=== PATIENT | female | born 2005 | race Caucasian/White ===

== ENCOUNTER 2023-02-04 05:49 | Emergency (ER) | payer OTHER, SELFPAY ==
[2023-02-04 05:57] VITALS: BP 101/85; PULSE 86; RESP 16; TEMP 36.7; O2SAT 100
[2023-02-04 06:38] LABS: Strep Group A RT-PCR NOT DETECTED (Negative)
--- NOTE | 2023-02-04 07:13 | ED.GENADULT ---
HPI - General Adult General Chief complaint: Unspecified Stated complaint: Sore throat with whites spots on tonsil Time Seen by Provider: 02/04/23 06:51 History of Present Illness HPI narrative: 17-year-old female presenting to the emergency department for evaluation of sore throat since Monday. Patient states she has been doing symptomatic treatment including salt water gargles. Patient states he does have a history of tonsil stones. Patient does have a hoarse voice. Related Data Allergies Allergy/AdvReac Type Severity Reaction Status Date / Time No Known Allergies Allergy Verified 02/04/23 05:52 Review of Systems Review of Systems: All systems reviewed & are unremarkable except as noted in HPI and below Exam Narrative: APPEARANCE: Well appearing, no pain, no distress, well-nourished. HEAD: normocephalic, atraumatic. EYES: PERRLA/EOMI, conjunctivae clear. NOSE: Normal no drainage EARS:TMS clear with good light reflex. THROAT: Posterior pharyngeal exudate. Mild swelling of the tonsils. No uvular deviation. No significant posterior pharynx swelling. NECK: Supple. No adenopathy, no masses. RESPIRATORY: Airway patent, respirations nonlabored. Clear to auscultation bilaterally, no rales, rhonchi, wheezing. CARDIOVASCULAR: Regular rate and rhythm without murmurs rubs or gallops. ABDOMINAL: Soft, nontender, nondistended, normal bowel sounds MUSCULOSKELETAL: Moves all extremities. Strength/ROM intact, No edema, No calf tenderness. NEURO: Alert. Cranial nerves II through XII intact. Grossly intact SKIN: Warm, dry. Normal Color Course Course Emergency Course: 17-year-old female presented to ED for sore throat. Group strep was negative. Patient does have tonsillar exudates and tonsillar swelling. Patient will be treated for tonsillitis/strep throat. Patient was updated on the results of the work-up and treatment plan and reasons for using antibiotics. Patient will be started on Augmentin in the ED and discharged home with Augmentin. Patient was advised on symptomatic treatment. Patient was also encouraged of close follow-up with her physician. All questions concerns were addressed. Vital Signs Vital signs: Vital Signs Temperature 98.1 F 02/04/23 05:57 Pulse Rate 86 02/04/23 05:57 Respiratory Rate 16 02/04/23 05:57 Blood Pressure 101/85 02/04/23 05:57 Pulse Oximetry 100 02/04/23 05:57 Oxygen Delivery Room Air 02/04/23 05:57 Temperature 98.1 F 02/04/23 05:57 Pulse Rate 86 02/04/23 05:57 Respiratory Rate 16 02/04/23 05:57 Blood Pressure 101/85 02/04/23 05:57 Pulse Oximetry 100 02/04/23 05:57 Oxygen Delivery Room Air 02/04/23 05:57 Medical Decision Making Differential Diagnosis Differential Diagnosis: Viral pharyngitis, streptococcal pharyngitis, tonsillitis, Vital Signs Vital Signs: Vital Signs Temperature 98.1 F 02/04/23 05:57 Pulse Rate 86 02/04/23 05:57 Respiratory Rate 16 02/04/23 05:57 Blood Pressure 101/85 02/04/23 05:57 Pulse Oximetry 100 02/04/23 05:57 Oxygen Delivery Room Air 02/04/23 05:57 Temperature 98.1 F 02/04/23 05:57 Pulse Rate 86 02/04/23 05:57 Respiratory Rate 16 02/04/23 05:57 Blood Pressure 101/85 02/04/23 05:57 Pulse Oximetry 100 02/04/23 05:57 Oxygen Delivery Room Air 02/04/23 05:57 Lab Data Lab results reviewed: Yes I reviewed the patient's lab results. Labs: Lab Results 02/04/23 Range/Units 06:08 Group A Strep (PCR) Not detected (Negative) Discharge Plan Discharge Clinical Impression: Acute sore throat Patient Disposition: Home, Self-Care Condition: Stable Instructions: Antibiotic Form, Pharyngitis (ED) Additional Instructions: Antibiotic as directed until completed. Tylenol and ibuprofen for sore throat. Follow a soft diet. Drink plenty fluids. Symptomatic treatment as directed have close follow-up with your primary care physician. Prescrip
== END 2023-02-04 07:20 | disposition home or self-care (01) ==
PROVIDERS: Emergency Medicine; Emergency Provider Emergency Medicine
DX: J02.9 Acute pharyngitis, unspecified (principal)
CPT/HCPCS: 87651; 99283

== ENCOUNTER 2024-01-14 07:32 | Emergency (ER) | payer OTHER, SELFPAY ==
[2024-01-14 07:39] VITALS: BP 123/80; PULSE 82; RESP 16; TEMP 36.8; O2SAT 100
--- NOTE | 2024-01-14 08:32 | ED.EYEPROB ---
HPI - Eye Problem General Chief complaint: Eye Problems Stated complaint: pink eye Time Seen by Provider: 01/14/24 07:40 History of Present Illness HPI Narrative: This is a 18-year-old female, with no significant past medical history, presents emergency department of right eye irritation and pain for past day. 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 She complains of some blurred vision but no loss of vision. She does wear contacts. Related Data Allergies Allergy/AdvReac Type Severity Reaction Status Date / Time No Known Allergies Allergy Verified 02/04/23 05:52 Review of Systems Review of Systems: CONSTITUTIONAL: Denies fever, chills, or sweats. EYES: Right eye redness, discharge and mild blurred vision ENT: Rhinorrhea and congestion (seasonal allergies) Denies sore throat, or otalgia. CARDIOVASCULAR: Denies chest pain, palpitations, or edema. RESPIRATORY: Denies cough or dyspnea. GASTROINTESTINAL: Denies abdominal pain, nausea, vomiting, or diarrhea. GENITOURINARY: LMP ongoing. Denies dysuria or hematuria. SKIN: Denies rash or itching. MUSCULOSKELETAL: Denies back pain, joint pain, or myalgia. NEUROLOGIC: Denies headache, numbness, dizziness, or weakness. PSYCHIATRIC: Denies anxiety or depression. PMFSH Past Medical History Medical History No significant past medical history Surgical History Surgical History No significant past surgical history Exam Narrative: GENERAL: Well-developed, well-nourished, and in no acute distress. HEAD: Normocephalic, atraumatic. EYES: PERRLA and EOMI. Right eye conjunctiva wall injection without foreign body. Contacts in place. ENT: Nares clear, no rhinorrhea or epistaxis. Mucous membranes moist. Oropharynx without tonsillar hypertrophy exudate or other lesions. CHEST: Clear to auscultation. No respiratory distress. No wheezes rales or rhonchi HEART: Regular rate and rhythm. No murmur heard. Normal peripheral pulses. EXTREMITIES: Normal range of motion. No edema. SKIN: Warm, dry, no rash. NEURO: Alert and oriented x3. No focal deficit. Moving all 4 limbs spontaneously PSYCH: Normal mood and affect. Course Course Emergency Course: 08:34 - Exam consistent with conjunctivitis. Will treat with ciprofloxacin for presumed bacterial conjunctivitis. I advised the patient on proper hand washing. Will discharge with recommendation for primary care follow-up. I discussed the findings and recommendations with the patient. Discussed return and emergency precautions including signs/symptoms of orbital cellulitis and vision loss. The patient voiced understanding and agreement with the plan. All questions answered to her satisfaction. Vital Signs Vital signs: Vital Signs Temperature 98.3 F 01/14/24 07:39 Pulse Rate 82 01/14/24 07:39 Respiratory Rate 16 01/14/24 07:39 Blood Pressure 123/80 01/14/24 07:39 Pulse Oximetry 100 01/14/24 07:39 Oxygen Delivery Room Air 01/14/24 07:39 Temperature 98.3 F 01/14/24 07:39 Pulse Rate 82 01/14/24 07:39 Respiratory Rate 16 01/14/24 07:39 Blood Pressure 123/80 01/14/24 07:39 Pulse Oximetry 100 01/14/24 07:39 Oxygen Delivery Room Air 01/14/24 07:39 MDM - Eye Problem MDM Narrative Medical decision making narrative: Plan: Ophthalmic antibiotics, primary care follow-up Differential Diagnosis Differential diagnosis: Likely conjunctivitis and other (Allergic conjunctivitis, viral conjunctivitis, bacterial conjunctivitis, other) Discharge Plan Discharge Clinical Impression: Acute conjunctivitis of right eye Qualifiers: Acute conjunctivitis type: unspecified Qualified Code(s): H10.31 - Unspecified acute conjunctivitis, right eye Patient Disposition: Home, Self-Care Condition: Stable Instructions: Antibiotic Form, Conjunctivitis (ED) A
[2024-01-14 08:58] VITALS: BP 106/79; PULSE 72; RESP 20; O2SAT 100
== END 2024-01-14 08:59 | disposition home or self-care (01) ==
PROVIDERS: Emergency Provider Preventive Medicine Aerospace Medicine
DX: H10.31 Unspecified acute conjunctivitis, right eye (principal)
CPT/HCPCS: 99283

== ENCOUNTER 2024-04-12 07:43 | Emergency (ER) | payer OTHER, SELFPAY ==
[2024-04-12 07:50] VITALS: BP 130/82; PULSE 94; RESP 18; TEMP 36.9; O2SAT 100
[2024-04-12 08:38] LABS: Appearance Urine Clear (Clear); Bacteria Urine Rare /hpf; Bilirubin Urine Negative (Negative); Blood Urine 2+ (Negative); Color Urine Yellow (Yellow); Glucose Urine UA Negative (Negative); Ketones Urine Negative (Negative); Leukocyte Esterase Ur 2+ LEU/UL (Negative); Need Manual Microscopic Reviewed; Nitrate Urine Negative (Negative); Non Pathogenic Casts 0-2; Protein Urine Negative (Negative); RBC Urine 0-2 /hpf (0-2); Specific Grav Ur 1.013 (1.001-1.035); Squamous Epithelial Cell Urine None Seen /hpf (Few); Urobilinogen Urine 0.2 mg/dL (<2.0); WBC Urine 0-5 /hpf (0-3); pH Urine 7.5 (5.0-9.0)
[2024-04-12 08:44] LABS: Add Urine Microscopic? YES
--- NOTE | 2024-04-12 09:35 | ED.FEMALEGU ---
HPI - Female Genitourinary General Chief complaint: Urogenital-Female Stated complaint: burning with urination Time Seen by Provider: 04/12/24 08:56 Source: patient Mode of arrival: ambulatory Limitations: no limitations History of Present Illness HPI Narrative: Patient presents with dysuria of several days duration as well abnormal menstrual bleeding her periods lasting longer than normal. She is had vaginal bleeding since the beginning of March that stopped for a few days and then restarted for the past 2 weeks. She states that she is chronic anemia which she is on iron pills but she has not taken them for the past 2 days as she did not bring them with her. No fevers. She has also a faint headache but denies any dizziness or lightheadedness. She states she previously had a positive chlamydia test and was treated at that time although was felt that this was a false positive secondary to bacterial vaginosis. She denies any current vaginal discharge. Denies any hair changes, weight changes, acne changes, or vision changes. She denies any temperature changes or edema. Not on anticoagulation. Mucosal bleeding. Denies any trauma or insertion of foreign bodies. She did know the last time she had sex she had dyspareunia. Denies any hematuria although she does have urinary urgency. She has had urinary tract infections before but none that were complicated or resistant to antibiotics. Sexually active with 1 male partner for the past month. Does not use condoms. Related Data Home Medications Medication Instructions Recorded Confirmed etonogestrel 68 mg subdermal 1 implant subdermal ONCE 04/12/24 04/12/24 implant (Nexplanon) Allergies Allergy/AdvReac Type Severity Reaction Status Date / Time No Known Allergies Allergy Verified 04/12/24 07:58 PMFSH Past Medical History Medical History (Updated 04/14/24 @ 16:16 by Anabella East MD) Anemia Bacterial vaginosis Surgical History Surgical History No significant past surgical history Social History Social History (Updated 04/14/24 @ 16:14 by Anabella East MD) Occupation/Education: occupation Additional occupation/education comments: in the [place] Exam Narrative: GENERAL: Well-appearing, well-nourished, and in no acute distress. HEAD: Normocephalic, atraumatic. EYES: Non injected, non icteric ENT: Nares clear, no rhinorrhea or epistaxis. No conjunctival pallor. NECK: Supple. CHEST: Speaking in full sentences. No respiratory distress. HEART: Regular rate and rhythm. . ABDOMEN: Soft, nondistended. EXTREMITIES: Normal range of motion. No edema. : Normal external genitalia. Normal vaginal vault and mucosa. Scant blood at the cervix/posterior fornix. No tenderness to manipulation of cervix on bimanual exam. No pelvic masses. SKIN: Warm, dry, no rash. NEURO: No focal deficits. Alert and oriented x3. PSYCH: Normal mood and affect. Course Vital Signs Vital signs: Vital Signs Temperature 98.4 F 04/12/24 07:50 Pulse Rate 94 04/12/24 07:50 Respiratory Rate 18 04/12/24 07:50 Blood Pressure 130/82 04/12/24 07:50 Pulse Oximetry 100 04/12/24 07:50 Oxygen Delivery Room Air 04/12/24 07:50 Temperature 98.4 F 04/12/24 07:50 Pulse Rate 74 04/12/24 12:32 Respiratory Rate 17 04/12/24 12:32 Blood Pressure 134/85 04/12/24 12:32 Pulse Oximetry 100 04/12/24 12:32 Oxygen Delivery Room Air 04/12/24 07:50 MDM - Female Genitourinary MDM Narrative Medical decision making narrative: Patient presents with dysuria as well as a period That has lasted longer than normal In the emergency department they are afebrile with vital signs within normal limits. After obtaining the patient's history and performing a physical exam, a spot urine was obtained which was negative for . She is a 18 year old who presents with vaginal bleeding most likely of no
[2024-04-12 10:16] VITALS: BP 129/85; PULSE 88; RESP 17; O2SAT 99
[2024-04-12 10:51] LABS: Basophils Percent Auto 0.6 % (0.2-1.2); Eosinophils Absolute Auto 0.1 K/mm3 (0-0.3); Hematocrit 43.2 % (37.0-47.0); Hemoglobin 13.6 g/dL (12.0-15.0); Immature Granulocyte Absolute 0.01 K/mm3 (0.00-0.031); Immature Granulocyte Percent A 0.2 % (0-0.5); Lymphocytes Absolute Auto 2.26 K/mm3 (0.9-3.2); Lymphocytes Percent Auto 41.8 % (18.3-44.2); Mean Corpuscular HGB Conc 31.5 g/dl (32-36); Mean Corpuscular Hemoglobin 26.1 pg (26-34); Mean Corpuscular Volume 82.9 fl (80-100); Monocytes Absolute Auto 0.3 K/mm3 (0.1-0.6); Monocytes Percent Auto 5.9 % (2.6-8.5); Neutrophils Absolute Auto 2.7 K/mm3 (1.3-6.7); Neutrophils Percent Auto 49.5 % (45.5-73.1); Platelet Count Result 265 k/mm3 (150-375); Red Blood Count 5.21 M/mm3 (4.2-5.4); Red Cell Distribution Width 14.4 % (11.5-14.5); White Blood Count 5.4 K/mm3 (4.5-10.0)
[2024-04-12 11:11] LABS: Anion Gap 11 mmol/L (4-12); Blood Urea Nitrogen 10 mg/dL (7-17); Calcium 9.4 mg/dL (8.4-10.2); Carbon Dioxide 24 mmol/L (22-30); Chloride 103 mmol/L (98-107); Estimated CRCL calculation 139 ml/min; Estimated Glomerular Filt Rate > 60; Glucose 78 mg/dL (65-110); Potassium 4.3 mmol/L (3.4-5.0); Sodium 138 mmol/L (137-145)
[2024-04-12 11:30] LABS: Trichomonas Vag PCR NOT DETECTED (NOT DETECTE)
[2024-04-12 11:55] LABS: Chlamydia trachomatis DETECTED (NOT DETECTE); Neisseria gonorrhoeae PCR NOT DETECTED (NOT DETECTE)
[2024-04-12 12:32] VITALS: BP 134/85; PULSE 74; RESP 17; O2SAT 100
[2024-04-13 19:24] LABS: Bacterial Vaginosis NEGATIVE (NEGATIVE)
== END 2024-04-12 12:42 | disposition home or self-care (01) ==
PROVIDERS: Emergency Provider Student in an Organized Health Care Education/Training Program
DX: R30.0 Dysuria (principal); N93.9 Abnormal uterine and vaginal bleeding, unspecified; R31.0 Gross hematuria; Z86.2 Personal history of diseases of the blood and blood-forming organs and certain disorders involving the immune mechanism
CPT/HCPCS: 36415; 80048; 81001; 81025; 81513; 85025; 87077; 87086; 87088; 87491; 87591; 87661; 99284